=== PATIENT | male | born 1970 | race Hispanic/Latino ===

== ENCOUNTER → 2017-07-10 | Outpatient (CLI) | payer OTHER ==
[~2017-07-10] MED LIST: ARANESP60 MCG/1 M SC; CEFEPIME 11 GM/50 ML IV; DILAUDID 22 MG/1 ML IM/IV; HUMULIN N100 UNITS/ SC; HYDRALAZINE HCL25 MG PO; INSULIN NPH SC; LOVENOX60 MG/0.6 SC; METOPROLOL SUCC50 MG PO; NORCO 10-325 T1 EACH PO; NOVOLOG MI100 UNITS/ SC; PANTOPRAZOLE SO40 MG PO; PROTEIN PO; RENAGEL800 MG PO; SIMETHICONE80 MG PO; VANCOMYCIN HCL1 GM IV; ZOFRAN ODT4 MG IVP; [UNRECOGNIZED DRUG - OTHER] IVP; [UNRECOGNIZED DRUG - OTHER] PO
== END ==
LOC: NPA 11:30
PROVIDERS: ATTEND Internal Medicine
DX: Z02.89 Encounter for other administrative examinations (principal)
CPT/HCPCS: 87493

== ENCOUNTER → 2017-08-05 | Outpatient (CLI) | payer OTHER ==
[2017-08-05 14:17] LABS: ANION GAP 16.1 mmol/L (8-16); BLOOD UREA NITROGEN 43 mg/dL (7-26); BUN/CREATININE RATIO 46 (6-25); CARBON DIOXIDE 23 mmol/L (22-29); CHLORIDE 104 mmol/L (98-107); CREATININE, SERUM 0.93 mg/dL (0.72-1.25); EST GLOMERULAR FILTRATION RATE > 60 ML/MIN (60-); POTASSIUM 4.1 mmol/L (3.5-5.1); SODIUM 139 mmol/L (136-145)
[2017-08-05 14:18] LABS: CALCIUM 8.8 mg/dL (8.4-10.2); GLUCOSE 89 mg/dL (74-118)
[2017-08-05 14:23] LABS: BASOPHILS % 0.5 % (0.0-1.0); EOSINOPHILS # (AUTO) 0.4 (0.0-0.4); EOSINOPHILS % 5.6 % (0.0-6.0); HEMATOCRIT 29.2 % (38.2-49.6); HEMOGLOBIN 8.9 g/dL (14.0-18.0); LYMPHOCYTES # (AUTO) 1.4 (1.0-3.2); MEAN CORPUSCULAR HEMOGLOBIN 30.9 pg (28-32); MEAN CORPUSCULAR HGB CONC 30.5 g/dL (31-35); MEAN CORPUSCULAR VOLUME 101.4 fL (81-99); MONOCYTES # (AUTO) 0.3 (0.2-0.8); MONOCYTES % 5.4 % (4.4-11.3); NEUTROPHILS # (AUTO) 4.1 (2.1-6.9); NEUTROPHILS % 64.9 % (38.7-80.0); PLATELET COUNT 269 x10e3/uL (140-360); RED BLOOD COUNT 2.88 x10e6/uL (4.3-5.7); RED CELL DISTRIBUTION WIDTH 19.2 % (11.7-14.4)
== END ==
LOC: NPA 11:30
PROVIDERS: ATTEND Internal Medicine
DX: Z02.89 Encounter for other administrative examinations (principal)
CPT/HCPCS: 36415; 80048; 85025

== ENCOUNTER → 2018-07-09 | Outpatient (CLI) | payer MEDICARE, OTHER ==
--- NOTE | 2018-07-09 14:19 | Diagnostic Imaging Report ---
EXAMINATION: PA and lateral views of the chest. COMPARISON: None CLINICAL HISTORY: Cough, congestion DISCUSSION: Left internal jugular tunneled hemodialysis catheter tip projects over the superior cavoatrial junction. Lungs are well-inflated and without focal airspace consolidation, pleural effusion, or pneumothorax. Atherosclerotic calcification of the thoracic aorta. Otherwise normal cardiomediastinal contour. No acute osseous abnormality. IMPRESSION: No acute cardiopulmonary abnormalities. Signed by: Dr. Junito Young M.D. on 07/09/2018 2:16 PM
== END ==
LOC: RAD 13:19
PROVIDERS: ATTEND Internal Medicine
DX: R05 Cough (principal); R09.89 Other specified symptoms and signs involving the circulatory and respiratory systems; J40 Bronchitis, not specified as acute or chronic; I50.32 Chronic diastolic (congestive) heart failure
CPT/HCPCS: 71046

== ENCOUNTER 2020-01-09 19:23 | Inpatient (IN) | payer MEDICARE, OTHER ==
[~2020-01-09] VITALS: Ht 180.3 cm; Wt 85.3 kg
[2020-01-09 19:57] LABS: BASOPHILS # (AUTO) 0.1 (0.0-0.1); BASOPHILS % 0.6 % (0.0-1.0); EOSINOPHILS # (AUTO) 0.2 (0.0-0.4); EOSINOPHILS % 2.5 % (0.0-6.0); HEMOGLOBIN 8.8 g/dL (14.0-18.0); LYMPHOCYTES # (AUTO) 1.3 (1.0-3.2); LYMPHOCYTES % 15.4 % (18.0-39.1); MEAN CORPUSCULAR HGB CONC 30.3 g/dL (31-35); MONOCYTES # (AUTO) 0.5 (0.2-0.8); NEUTROPHILS # (AUTO) 6.2 (2.1-6.9); NEUTROPHILS % 75.1 % (38.7-80.0); PLATELET COUNT 226 x10e3/uL (140-360); RED BLOOD COUNT 2.93 x10e6/uL (4.3-5.7); RED CELL DISTRIBUTION WIDTH 14.6 % (11.7-14.4)
[2020-01-09 20:04] LABS: INR 1.05; PROTHROMBIN TIME 14.4 seconds (11.9-14.5)
[2020-01-09 20:05] LABS: PARTIAL THROMBOPLASTIN TIME 37.6 seconds (23.8-35.5)
[2020-01-09 20:12] LABS: ALBUMIN 2.6 g/dL (3.5-5.0); ALBUMIN/GLOBULIN RATIO 0.4 (0.8-2.0); ANION GAP 24.2 mmol/L (8-16); CALCIUM 9.4 mg/dL (8.4-10.2); CREATININE, SERUM 17.9 mg/dL (0.72-1.25)
[2020-01-09 20:16] LABS: POTASSIUM 6.2 mmol/L (3.5-5.1)
[2020-01-09] MEDS ORDERED: SODIUM BICARBONATE 8.4% INJ 50 ML SYR IV STA (20:17)
[2020-01-09] MEDS ORDERED: DEXTROSE 50% SYRINGE 50 ML IV STA (20:17)
[2020-01-09 20:18] LABS: CREATINE KINASE MB 1.8 ng/mL (0-5.0)
[2020-01-09] MEDS ORDERED: INSULIN REGULAR, HUMAN 100 UNIT/1 ML 3ML VIAL IV ONE (20:30)
[2020-01-09] MEDS ORDERED: CALCIUM GLUCONATE 10% INJ 13.95 MEQ in SODIUM CHLORIDE 0.9% 100 ML 100 ML IV ONE (20:45)
[2020-01-09] MEDS ORDERED: CALCIUM GLUCONATE 10% INJ 0.465 MEQ/ML VIAL ONE (21:09)
--- NOTE | 2020-01-09 21:26 | Diagnostic Imaging Report ---
EXAMINATION: CHEST SINGLE (PORTABLE) INDICATION: MISSED 10 DAYS OF DIALYSIS COMPARISON: Chest radiograph 07-09-2018. FINDINGS: TUBES and LINES: Left IJ tunneled hematosis catheter with tip in the cavoatrial junction. LUNGS: Lungs are moderately inflated. Mild perihilar and interstitial opacities. Mild patchy bibasilar opacities. No lobar consolidation. PLEURA: No pleural effusion or pneumothorax. HEART AND MEDIASTINUM: The cardiomediastinal silhouette is unchanged. Cardiac loop recorder. Atherosclerotic calcifications of the aortic arch. BONES AND SOFT TISSUES: No acute osseous abnormality. Remote healed left lower lateral rib fracture. UPPER ABDOMEN: No free air under the diaphragm. IMPRESSION: Findings of mild pulmonary interstitial edema. Bibasilar opacities, likely atelectasis, although infectious process is possible in the appropriate clinical setting. Signed by: Dr. Jama Segovia MD on 01/09/2020 9:23 PM
[2020-01-09] MEDS ORDERED: HYDROCODONE/APAP 10MG-325MG TAB PO ONE (21:45)
--- NOTE | 2020-01-09 23:33 | Emergency Department Note ---
History of Present Illnes History of Present Illness Chief Complaint: General Medicine Complaints History of Present Illness This is a 49 year old male PRESENTS WITH C/O GENERALIZED WEAKNESS, HAS NOT HAD DIALYSIS IN 10 DAYS. WAS EXPOSED TO A PERSON WITH COVID AND TOLD AT DIALYSIS HE COULD NOT RETURN UNTIL HE GOT A NEGATIVE COVID TEST, PT HAD A TEST 1 WEEK AGO BUT RESULTS ARE STILL PENDING. . 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 Any updates have been documented here. Past Medical History Past Medical History: Hypertension, Diabetes, ESRD, Hemodyalisis, H yperlipedemia Past Surgical History: Cholecysctectomy Other Surgery: FOOT SURGERY Social History Smoking Cessation: Never Smoker Counseling Performed: No Alcohol Use: None Any Illegal Drug Use: No Physically hurt or threatened: No Family History Family history of heart diseas: No Other family history HTN,DM Other Any Pre-Existing Lines (PICC,: Yes (l chest) Review of Systems Review of Systems Constitutional: Reports no symptoms EENTM: Reports no symptoms Cardiovascular: Reports no symptoms Respiratory: Reports no symptoms Gastrointestinal: Reports no symptoms Genitourinary: Reports no symptoms Musculoskeletal: Reports no symptoms Integumentary: Reports no symptoms Neurological: Reports as per HPI Psychological: Reports no symptoms Endocrine: Reports no symptoms Hematological/Lymphatic: Reports no symptoms Physical Exam Related Data Allergies: Coded Allergies: morphine (Verified Allergy, Mild, 09/14/15) methylphenidate (Verified Allergy, Unknown, 02/06/15) Triage Vital Signs Vital Signs Date Time Temp Pulse Resp B/P (MAP) Pulse Ox O2 Delivery O2 Flow Rate FiO2 01/09/20 21:38 84 13 168/82 96 Vital signs reviewed: Yes Physical Exam CONSTITUTIONAL Constitutional: Present well-developed, Present well-nourished HENT HENT: Present normocephalic, Present atraumatic, Present oropharynx clear/moist, Present nose normal HENT L/R: Present left ext ear normal, Present right ext ear normal EYES Eyes: Reports PERRL, Reports conjunctivae normal NECK Neck: Present ROM normal PULMONARY Pulmonary: Present effort normal, Present breath sounds normal CARDIOVASCULAR Cardiovascular: Present regular rhythm, Present heart sounds normal, Present capillary refill normal, Present normal rate GASTROINTESTINAL Abdominal: Present soft, Present nontender, Present bowel sounds normal GENITOURINARY Genitourinary: Present exam deferred SKIN Skin: Present warm, Present dry, Present other (SACRAL WOUND, IS CHRONIC PER PT, NO SIGN OF INFECTION) MUSCULOSKELETAL Musculoskeletal: Present ROM normal NEUROLOGICAL Neurological: Present alert, Present oriented x 3, Present no gross motor or sensory deficits PSYCHOLOGICAL Psychological: Present mood/affect normal, Present judgement normal Results Laboratory Result Diagram: 01/09/20194601/09/201946 Laboratory Laboratory Tests Test 01/09/20 19:47 White Blood Count 8.27 x10e3/uL (4.8-10.8) Red Blood Count 2.93 x10e6/uL (4.3-5.7) Hemoglobin 8.8 g/dL (14.0-18.0) Hematocrit 29.0 % (38.2-49.6) Mean Corpuscular Volume 99.0 fL (81-99) Mean Corpuscular Hemoglobin 30.0 pg (28-32) Mean Corpuscular Hemoglobin Concent 30.3 g/dL (31-35) Red Cell Distribution Width 14.6 % (11.7-14.4) Platelet Count 226 x10e3/uL (140-360) Neutrophils (%) (Auto) 75.1 % (38.7-80.0) Lymphocytes (%) (Auto) 15.4 % (18.0-39.1) Monocytes (%) (Auto) 6.0 % (4.4-11.3) Eosinophils (%) (Auto) 2.5 % (0.0-6.0) Basophils (%) (Auto) 0.6 % (0.0-1.0) Neutrophils # (Auto) 6.2 (2.1-6.9) Lymphocytes # (Auto) 1.3 (1.0-3.2) Monocytes # (Auto) 0.5 (0.2-0.8) Eosinophils # (Auto) 0.2 (0.0-0.4) Basophils # (Auto) 0.1 (0.0-0.1) Absolute Immature Granulocyte (auto 0.03 x10e3/uL (0-0.1) Prothrombin Time 14.4 seconds (11.9-14.5) Prothromb Time International Ratio 1.05 Activated Partial Thromboplast Time 37.6 seconds (23.8-35.5) Sodium Level 140 mmol/L (136-145) Potassium Level 6.2 mmol/L (3.5-5.1) Chloride Level 104 mmol/L (98-107) Carbon Dioxide Level 18 mmol/L (22-29) Anion Gap 24.2 mmol/L (8-16) Blood Urea Nitrogen 120 mg/dL (7-26) Creatinine 17.90 mg/dL (0.72-1.25) Estimat Glomerular Filtration Rate 3 ML/MIN (60-) BUN/Creatinine Ratio 7 (6-25) Glucose Level 87 mg/dL (74-118) Calcium Level 9.4 mg/dL (8.4-10.2) Total Bilirubin 0.4 mg/dL (0.2-1.2) Aspartate Amino Transf (AST/SGOT) 12 IU/L (5-34) Alanine Aminotransferase (ALT/SGPT) 10 IU/L (0-55) Alkaline Phosphatase 144 IU/L (40-150) Creatine Kinase 22 IU/L (30-200) Creatine Kinase MB 1.80 ng/mL (0-5.0) Troponin I 0.032 ng/mL (0-0.300) B-Type Natriuretic Peptide 1421.1 pg/mL (0-100) Total Protein 8.4 g/dL (6.5-8.1) Albumin 2.6 g/dL (3.5-5.0) Globulin 5.8 g/dL (2.3-3.5) Albumin/Globulin Ratio 0.4 (0.8-2.0) Lab results reviewed: Yes Imaging Imaging results reviewed: Yes Impressions REPORT STATUS: Signed EXAMINATION: CHEST SINGLE (PORTABLE) INDICATION: MISSED 10 DAYS OF DIALYSIS COMPARISON: Chest radiograph 07-09-2018. FINDINGS: TUBES and LINES: Left IJ tunneled hematosis catheter with tip in the cavoatrial junction. LUNGS: Lungs are moderately inflated. Mild perihilar and interstitial opacities. Mild patchy bibasilar opacities. No lobar consolidation. PLEURA: No pleural effusion or pneumothorax. HEART AND MEDIASTINUM: The cardiomediastinal silhouette is unchanged. Cardiac loop recorder. Atherosclerotic calcifications of the aortic arch. BONES AND SOFT TISSUES: No acute osseous abnormality. Remote healed left lower lateral rib fracture. UPPER ABDOMEN: No free air under the diaphragm. IMPRESSION: Findings of mild pulmonary interstitial edema. Bibasilar opacities, likely atelectasis, although infectious process is possible in the appropriate clinical setting. Signed by: Dr. Jama Onofre MD on 01/09/2020 9:23 PM Dictated By: JAMA ONOFRE MD 22 Transcribed By: MODESTO on 01/09/202122 COPY TO: ARPAN RUBIN MD~ Procedures 12 Lead ECG Interpretation ECG Interpretation : ECG: ECG 1 Glassine Machine Tender: Interpreted by ED physician Date: Jan 09, 2020 Time: 20:12 Rhythm: sinus rhythm Rate: normal BPM: 84 QRS axis: left Conduction: right bundle branch block ST segments normal: Yes T wave inversion: V1, V2, V3 Other findings: no other findings Q waves: III Clinical Impression: abnormal ECG Critical Care Time Total Critical Care Time (min): 31 Critcal care necessary due to: renal failure, other (HYPERKALEMIA) Critcal care time spent by me: develop tx plan w patient/surrogate, discussion w consultants, evaluation patient response to tx, examination of patient, obtaining hx from patient/surrogate, order/review laboratory studies, re- evaluation of patient condition, review of old charts Assessment & Plan Medical Decision Making MDM PT WITH GENERALIZED WEAKNESS AFTER MISSING DIALYSIS FOR LAST 10 DAYS CBC, CMP, EKG, CXR, ORDERED TO EVAL FOR HYPERKALEMIA, PULMONARY EDEMA, ARRHYTHMIA PT FOUND OT HAVE POTASSIUM OF 6.2 FOLLOWING ORDERED REGULAR INSULIN 10 UNITS IV CALCIUM GLUCONATE 1 AMP IV BICARB 1 AMP IV D50 1 AMP IV I SPOKE WITH DR ZABALA, STATES WILL HAVE PT RECEIVE DIALYSIS AT 6 AM PT'S CXR SHOWED MILD PULMONARY EDEMA AND SIGNS OF POSSIBLE COVID 19 VIRAL PNEUMONIA, COVID 19 TEST ORDERED [address] villarreal. pt awaiting dialysis and covid 19 result Assessment & Plan Final Impression: (1) ESRD needing dialysis (2) Hyperkalemia Last Vital Signs Date Time Temp Pulse Resp B/P (MAP) Pulse Ox O2 Delivery O2 Flow Rate FiO2 01/09/20 21:38 84 13 168/82 96 Home Meds Reported Medications Insulin Human Nph (HUMULIN N) 100 Units/Ml Ml, 14 UNITS SC DAILY 02/06/15 Insulin Human Nph (HUMULIN N) 100 Units/Ml Ml, 10 UNITS SC DAILY 02/06/15 Sevelamer Hcl (RENAGEL) 800 Mg Tablet, 2400 MG PO, TAB 02/06/15 Pantoprazole Sodium* (PROTONIX) 40 Mg Tablet.dr, 40 MG PO DAILY, TAB 02/06/15 Metoprolol Succinate (METOPROLOL SUCCINATE) 50 Mg Tab.er.24h, 50 MG PO DAILY, MG 02/06/15 Hydralazine Hcl (HYDRALAZINE HCL) 25 Mg Tab, 25 MG PO Q8HR, TAB 02/06/15 Hydrocodone Bit/Acetaminophen (NORCO 10-325 TABLET) 1 Each Tablet, 10 MG PO Q4HR PRN for PAIN 02/06/15 Medications in the ED Insulin Human Regular 10 unit ONCE ONCE IV Last administered on 01/09/20at 21:08; Admin Dose 10 UNIT; Start 01/09/20 at 20:30; Stop 01/09/20 at 20:35; Status DC Sodium Bicarbonate 50 ml NOW STAT IV Last administered on 01/09/20at 21:08; Admin Dose 50 ML; Start 01/09/20 at 20:17; Stop 01/09/20 at 20:19; Status DC Calcium Gluconate 13.95 meq/Sodium Chloride 130 ml @ 43.333 mls/ hr ONCE ONCE IV Last administered on 01/09/20at 21:09; Admin Dose 43.333 MLS/HR; Start 12/21 at 20:45; Stop 01/09/20 at 23:44 Dextrose 50 ml NOW STAT IV Last administered on 01/09/20at 21:08; Admin Dose 50 ML; Start 01/09/20 at 20:17; Stop 01/09/20 at 20:19; Status DC Calcium Gluconate STK-MED ONCE .ROUTE ; Start 01/09/20 at 21:09; Stop 01/09/20 at 21:04; Status DC Acetaminophen/ Hydrocodone Bitart 1 ea ONCE ONCE PO Last administered on 01/09/20at 22:08; Admin Dose 1 EA; Start 01/09/20 at 21:45; Stop 01/09/20 at 21:46 ARPAN RUBIN MD Jan 09, 2020 23:32
[2020-01-10] MEDS ORDERED: HYDRALAZINE HCL 20 MG/ML VIAL IV STA (03:54)
[2020-01-10 05:14] LABS: ANION GAP 24.2 mmol/L (8-16); CALCIUM 9.7 mg/dL (8.4-10.2); CREATININE, SERUM 18.89 mg/dL (0.72-1.25)
[2020-01-10 05:18] LABS: POTASSIUM 6.2 mmol/L (3.5-5.1)
--- NOTE | 2020-01-10 06:46 | NUR ---
TO ROOM ON ROUNDS, PT C/O SLIGHT CHEST PAIN. NOW RESOLVED. VS ASSESSED AND RECORDED. MD INFORMED. EKG DONE PER ORDERS. LAB CALLED TO RUN CARDIAC ENZYMES ON BLOOD SENT TO LAB PER MD REQUEST.
--- NOTE | 2020-01-10 06:55 | NUR ---
RC'D CALL FROM DIALYSIS NURSE. NURSE INFORMED OF RM NUMBER FOR HD.
[2020-01-10] MEDS ORDERED: DEXTROSE 50% SYRINGE 50 ML IV ONE ×2 (07:30→07:34)
[2020-01-10] MEDS ORDERED: SODIUM CHLORIDE 0.9% 1000ML 2,000 ML ONE (08:08)
--- NOTE | 2020-01-10 08:57 | NUR ---
Dialysis nurse present, pt currently receiving dialysis.
[2020-01-10] MEDS ORDERED: HEPARIN SOD (PORCINE) 1000 UNIT/ML SDV ONE (09:49)
--- NOTE | 2020-01-10 11:10 | NUR ---
pt is receiving dialysis at this time
[2020-01-10 13:38] LABS: ANION GAP 22.2 mmol/L (8-16); CALCIUM 8.6 mg/dL (8.4-10.2); CREATININE, SERUM 17.74 mg/dL (0.72-1.25)
[2020-01-10 13:42] LABS: POTASSIUM 6.2 mmol/L (3.5-5.1)
[2020-01-10] MEDS ORDERED: SOD POLYSTYRENE SULFONATE SUSP 15 GM/60 ML BTL PO ONE (14:15)
--- NOTE | 2020-01-10 14:19 | Diagnostic Imaging Report ---
EXAMINATION: CHEST SINGLE (PORTABLE) INDICATION: ^cough ^[id number] ^[id number] COMPARISON: 01/09/2020 FINDINGS: AP view TUBES and LINES: Left IJ tunneled hemodialysis catheter. Implanted loop recorder. LUNGS: Prominent pulmonary vasculature. No focal lung consolidation. PLEURA: No pleural effusion or pneumothorax. HEART AND MEDIASTINUM: The cardiomediastinal silhouette is unremarkable. BONES AND SOFT TISSUES: No acute osseous lesion. Soft tissues are unremarkable. UPPER ABDOMEN: No free air under the diaphragm. IMPRESSION: Central pulmonary venous congestion. No lung consolidation to suggest pneumonia. Signed by: Wesley Morrell MD on 01/10/2020 2:16 PM
--- NOTE | 2020-01-10 15:07 | NUR ---
REC'D REPORT IN WALKING ROUNDS WITH TRA FLORES FOR CONTINUITY OF CARE.
[2020-01-10 15:17] LABS: CALCIUM 8.9 mg/dL (8.4-10.2); CREATININE, SERUM 8.88 mg/dL (0.72-1.25)
--- NOTE | 2020-01-10 15:57 | NUR ---
[facility] CALLED FOR TX BACK HOME; ETA APPROX. 45 MIN.
--- NOTE | 2020-01-10 16:20 | NUR ---
TRIED TO CALL THE FAMILY; BUT NO ANSWER
--- NOTE | 2020-01-10 16:54 | NUR ---
; NUMBER ON CHART. LEFT MESSAGE, NO ANSWER
--- NOTE | 2020-01-10 17:03 | NUR ---
ANOTHER PHONE CALL TO [phone]
--- NOTE | 2020-01-10 17:06 | NUR ---
[facility] HERE TO TAKE PT BACK HOME, BUT NO ANSWER AT THE NUMBER [phone]
--- NOTE | 2020-01-10 17:26 | NUR ---
tried again to contact family; no answer
[2020-01-10] MEDS ORDERED: ONDANSETRON HCL INJ 2MG/ML 2ML 2 MG/ML VIAL IV PRN (18:00)
[2020-01-10] MEDS ORDERED: DEXTROSE 50% SYRINGE 50 ML IV PRN (18:00)
[2020-01-10] MEDS ORDERED: SODIUM CHLORIDE FLUSH 10 ML SYR INJ PRN (18:00)
--- NOTE | 2020-01-10 19:02 | NUR ---
to be admitted to 215
--- NOTE | 2020-01-10 19:16 | NUR ---
report called to pricilla victor
[2020-01-10 19:34] VITALS: BP 148/103
[2020-01-10 19:37] VITALS: BP 148/103
[2020-01-10] MEDS ORDERED: CLOPIDOGREL75 MG PO (19:54)
[2020-01-10] MEDS ORDERED: OMEPRAZOLE40 MG PO (19:54)
[2020-01-10] MEDS ORDERED: CALCIUM ACETAT667 M1 PO (19:54)
[2020-01-10] MEDS: INSULIN REGULAR, HUMAN 100 UNIT/1 ML 3ML VIAL SQ SCH (20:41)
[2020-01-10 21:24] VITALS: BP 148/103
[2020-01-11] VITALS (7 sets, daily range): BP systolic 123–182; BP diastolic 70–91
[2020-01-11 05:08] LABS: BASOPHILS % 0.3 % (0.0-1.0); EOSINOPHILS # (AUTO) 0.1 (0.0-0.4); EOSINOPHILS % 1.4 % (0.0-6.0); HEMATOCRIT 29.2 % (38.2-49.6); HEMOGLOBIN 8.9 g/dL (14.0-18.0); LYMPHOCYTES # (AUTO) 0.9 (1.0-3.2); LYMPHOCYTES % 12.6 % (18.0-39.1); MEAN CORPUSCULAR HEMOGLOBIN 30.1 pg (28-32); MEAN CORPUSCULAR HGB CONC 30.5 g/dL (31-35); MEAN CORPUSCULAR VOLUME 98.6 fL (81-99); MONOCYTES # (AUTO) 0.4 (0.2-0.8); MONOCYTES % 5.7 % (4.4-11.3); NEUTROPHILS # (AUTO) 5.9 (2.1-6.9); NEUTROPHILS % 79.7 % (38.7-80.0); PLATELET COUNT 225 x10e3/uL (140-360); RED BLOOD COUNT 2.96 x10e6/uL (4.3-5.7); RED CELL DISTRIBUTION WIDTH 14.5 % (11.7-14.4)
[2020-01-11 05:34] LABS: CHOL/HDL RATIO 2.6 (3.9-4.7)
[2020-01-11 05:41] LABS: ALBUMIN 2.5 g/dL (3.5-5.0); ALBUMIN/GLOBULIN RATIO 0.4 (0.8-2.0); ANION GAP 17.5 mmol/L (8-16); CALCIUM 9.1 mg/dL (8.4-10.2); CREATININE, SERUM 10.44 mg/dL (0.72-1.25); MAGNESIUM 1.9 MG/DL (1.3-2.1); PHOSPHORUS 5.5 MG/DL (2.3-4.7); POTASSIUM 4.5 mmol/L (3.5-5.1)
[2020-01-11] MEDS: INSULIN REGULAR, HUMAN 100 UNIT/1 ML 3ML VIAL SQ SCH ×4 (07:30→21:00)
--- NOTE | 2020-01-11 08:02 | NUR ---
CONSULT FOR SOCIAL SERVICE PUT IN BECAUSE FAMILY DID NOT ANSWER PHONE, PHONE NUMBERS FOR FAMILY ARE MAXI AGUIRRE [phone] SEAN AGUIRRE [phone].
[2020-01-11] MEDS ORDERED: HYDRALAZINE HCL25 MG PO (08:17)
[2020-01-11] MEDS ORDERED: SODIUM CHLORIDE 0.9% 1000ML 1,000 ML ONE (08:19)
--- NOTE | 2020-01-11 08:31 | NUR ---
PT HOME DIALYSIS [facility]IT IS [facility] [phone] CALLED AND SPOKE WITH NURSE KARI WHOM STATES HE IS A , AND THURSDAY AT 1030AM. SHE STATES HE IS NON-COMPLAINT AND TOLD THEM HE THINKS HE WAS EXPOSED SO HE CHOSE NOT TO GO TREATMENT, I ASKED IF THE PT WOULD BETTER BE SERVED BY TRANSFERRED TO A AMHERST LOCATION TO BE CLOSER TO SISTERS HOME,SHE STATES THE PT HAS NEVER ASKED TO BE MOVED. IF HE CHOOSES TO DO THAT ALL HE HAS TO DO IS CALL [facility] AT [phone]. DOCTOR HAS ASKED FOR A APS CALL TO CHECK HOME SITUATION, WILL REPORT ALL THAT HAS BEEN REPORTED. WILL FAX NEGATIVE RESULTS FROM COVID TEST TO DIALYSIS UNIT AT [phone]
[2020-01-11] MEDS ORDERED: ACETAMINOPHEN 325 MG TAB PO PRN (08:45)
[2020-01-11] MEDS: METOPROLOL SUCCINATE 50 MG TAB XL PO SCH (09:00)
[2020-01-11] MEDS: MUPIROCIN 2% OINT 22 GM TUBE TOP SCH ×2 (09:00→17:00)
[2020-01-11] MEDS: PANTOPRAZOLE SOD 40 MG TABEC PO SCH ×2 (09:10→17:12)
[2020-01-11] MEDS: CLOPIDOGREL BISULFATE 75 MG TAB PO SCH (09:10)
--- NOTE | 2020-01-11 09:10 | History and Physical ---
CHIEF COMPLAINT: Missed dialysis sessions. HISTORY OF PRESENT ILLNESS: This is a 49-year-old man, who presented to [facility] Emergency Room with a diagnosis of severe hyperkalemia secondary to missed hemodialysis sessions. The patient stated that his last hemodialysis session was on December 31, 2019. When the patient initially presented to [facility] Emergency Room, his potassium was 6.2. His B- type natriuretic peptide level was 1421. Chest film on admission revealed pulmonary interstitial edema with bibasilar opacities likely atelectasis. The patient did undergo hemodialysis during this hospitalization. The patient's potassium today is 4.5. The patient's B-type natriuretic peptide level today is 1080. The patient voices no complaints. The patient, however, has scrotal wounds that are draining purulent material. The patient's white blood cell count today is 7300 with 79% segmented neutrophils. He is currently being hemodialyzed at this time. Apparently, the patient wants to left the emergency room yesterday after hemodialysis, but a ride home could not be procured. His care at home is questionable. The patient, however, states he does have a provider that visits him twice a day. REVIEW OF SYSTEMS: GENERAL: Weight has been stable. No fever or chills, but he has been weaker lately. HEENT: No headaches. No visual changes. CARDIOVASCULAR/RESPIRATORY: No chest pain. He was slightly short of breath when he was admitted, but since resolved. Denies any coughing. GI: He states in the past 4 days, he has had diarrhea. Denies any nausea or vomiting. : He does not urinate. He has end-stage renal disease. NEUROMUSCULAR: He has numbness in his feet. He is predominantly bedbound. ALLERGIES: 1. METHYLPHENIDATE. 2. MORPHINE. HOME MEDICATIONS: 1. Calcium acetate 667 mg 3 capsules 3 times a day. 2. Clopidogrel 75 mg daily. 3. Metoprolol succinate 50 mg once a day. 4. Omeprazole 40 mg daily. 5. Sevelamer 2400 mg t.i.d. with meals. 6. Hydralazine 25 mg tid. PAST MEDICAL HISTORY: 1. Recurrent skin abscesses. 2. End-stage renal disease (he has been on hemodialysis since 2009). 3. 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 4. Hypertensive heart disease. 5. Chronic diastolic congestive heart failure. 6. Anemia secondary to chronic disease/chronic kidney disease. 7. Recurrent bouts of hidradenitis suppurativa. PAST SURGICAL HISTORY: 1. Right foot surgery. 2. Left upper extremity AV fistula placement. 3. Laparoscopic cholecystectomy. FAMILY HISTORY: Mother had type 2 diabetes mellitus, but she has since passed. His sister also has type 2 diabetes mellitus. SOCIAL HISTORY: This man is single. He apparently lives with his nephew and his sister. He is unemployed and receiving disability benefits. The patient has no history of tobacco or alcohol use. PHYSICAL EXAMINATION: GENERAL: He is awake. He is alert. He looks chronically ill. He is pleasant and cooperative on exam. He does not appear to be in any obvious respiratory distress. VITAL SIGNS: Height 5 feet 11 inches, weight 188 pounds, BMI 26. Blood pressure 168/78, pulse 88, respiratory rate is 18, oxygen saturation 93% on room air, and temperature 98.1. INTEGUMENT: Skin is warm and dry. Slight pallor. No jaundice or diaphoresis. The patient has scrotal wound draining purulent material. HEENT: Anterior sclerae with moist mucous membranes. The patient has enucleated right eye. He is legally blind. NECK: Supple. No evidence of jugular venous distention. CARDIOVASCULAR: Distant heart sounds. Regular rate and rhythm with S4 gallop. LUNGS: No rales. No rhonchi, but he has crackles at the bases. ABDOMEN: Soft. Normal bowel sounds. EXTREMITIES: No edema. He has muscle wasting. NEUROLOGIC: He is bedbound. No gross deficits, but he is globally weak. DIAGNOSES: 1. End-stage renal disease. 2. Hyperkalemia secondary to missed hemodialysis sessions, resolved. 3. Scrotal wounds (infected). 4. Zbmgh-ye-hwegvua diastolic congestive heart failure, resolving. 5. Hypertensive heart disease. 6. Type 2 diabetes mellitus with severe diabetic retinopathy and peripheral neuropathy. PLAN: 1. We will likely discharge the patient home today, but if his home environment is unsafe, then he will be referred to a [facility] facility. 2. We will order mupirocin 2% ointment to be applied to the patient's scrotum twice a day for 10 days. 3. Resume home medications. 4. Proceed with hemodialysis today. 5. Blood glucose monitoring control. 6. Blood pressure monitoring control. Spent an hour in the care of this patient. MD SIMONE Lima/REBECCA /[id number] LUIS
--- NOTE | 2020-01-11 09:43 | NUR ---
CALLED SISTER SEAN [phone], SHE STATES PT LIVES WITH THEIR SISTER DAMIAN [phone] (CALLED AND LEFT MESSAGE), SHE CONFIRMED THERE IS A NURSE THAT COMES 2 TIMES A DAY BUT CANT REMEMBER NAME OR COMPANY [phone] (CALLED AND LEFT MESSAGE TO RETURN CALL), FILED APS REPORT PER DOCTOR REQUEST report is [id number], SISTER SEAN IS HELPFUL AND PROVIDED INFORMATION, WAS CONCERNED ABOUT HER BROTHER AND ASKED IF ANYTHING HAPPENS TO PLEASE CALL HER.
[2020-01-11] MEDS ORDERED: HEPARIN SOD (PORCINE) 1000 UNIT/ML SDV IV PRN (09:45)
[2020-01-11] MEDS ORDERED: SODIUM CHLORIDE 0.9% 1000ML 2,000 ML IV PRN (09:45)
--- NOTE | 2020-01-11 11:55 | NUR ---
NURSE MUMTAZ SEES THIS PATIENT 3 TIMES A WEEK ON , THU AND FRIDAYS FOR WOUND CARE WITH [facility] IF NEED TO FAX ORDERS THEY WILL GO TO [phone], OFFICE IS [phone]. HIS FAMILY IS BEING PAID FOR BEING THE PROVIDER FOR 40 HOURS A WEEK, THEY HAVE BEEN TRYING TO GET THEM TO SWITCH TO A PROVIDER BUT DIFFERENT FAMILY MEMBERS WANT TO DO IT. SHE STATES THE SON WHOM IS GETTING PAID TO BE THER PROVIDER AND HIS LEGAL ADDRESS IS ON [facility] BUT HE IS STAYING AT HIS SIST[facility] AT [address], [place] [address]. EDUCATED THAT HE CAN BE MOVED TO A LOCAL [facility] AND THE PROCESS TO ACHIEVE. SHE STATES THEY WILL SEE HIM ON THURSDAY.
[2020-01-11] MEDS: CALCIUM ACETATE 667 MG GELCAP PO SCH ×2 (12:11→17:12)
[2020-01-11] MEDS: SEVELAMER CARBONATE 800 MG TAB PO SCH ×2 (12:11→17:12)
--- NOTE | 2020-01-11 12:26 | NUR ---
SPOKE WITH [facility] HE IS THEIR PT. THEY WERE ABLE TO PROVIDE ADDRESS WHERE PT IS GETTING CARE [address] [place] [address], HOME NUMBER IS [phone] ([facility]) HAS A SON ALSO THAT IS PAID TO BE A PROVIDER FOR 40 HOURS A WEEK MAXI ANTHONY [phone] OR [phone], SHE ALSO STATES THEY NEED A RESUME HOME HEALTH ORDER AND A COPY OF THE COVID RESULTS FAXED TO THEM. CALLED AND INFORMED NURSE OF ALL INTERACTION AND NEED FOR A ORDER TO RESUME.
--- NOTE | 2020-01-11 12:58 | NUR ---
WOUND CARE CONSULT FOR 49 YO MALE HX OF ESRD,WEAKNESS HYPERKALEMIA RENITA 9 ON STRICT PUP STATUS AND INTERVENTIONS AND ALTERNATING PRESSURE MATTRESS LABS: WBC-7.38 HGB_8.9 GLUCOSE-85 SKIN ASSESSMENT COMPLETE PATIENT PRESENTS WITH NEWLY HEALED AREAS TO BUTTOCKS AND BILATERAL HEELS SCROTUM HAS OPEN AREAS RELATED TO MOISTURE IRRITATION AND URINE BURN REPORTED BY PATIENT. UPPER OPEN AREA TO SCROTUM 1CM X 2CM X 0.1CM LOWER OPEN AREA TO SCROTUM 1CM X 4CM X 0.1CM RECOMMENDATIONS: NURSING TO CONTINUE TO MAINTAIN STRICT PUP STATUS AND INTERVENTIONS AND ALTERNATING PRESSURE MATTRESS NURSING TO CONTINUE TO ASSIST PATIENT OUT OF BED FOR MEALS AND MUCH TOLERATED NURSING TO CONTINUE TO ASSIST PATIENT NEEDED WITH MEALS AND NUTRITIONAL SUPPLEMENTS TO ENSURE PROPER REQUIREMENTS FOR HEALING NURSING TO CONTINUE TO OFFLOAD FEET AND HEELS NEEDED WITH PILLOW SUSPENSION WHEN IN BED NURSING TO CLEAN SCROTUM WITH GENTLE SOAP DAILY AND APPLY ZINC/BALSM MIA BARRIER PASTE NURSING TO CLEAN LEFT GREAT TOE WITH NORMAL SALINE DAILY AND APPLY VENELEX OINTMENT AND LEAVE OPEN TO AIR Addendum: 01/11/20 at 1308 by Julius Villegas RN Amended: Links added.
[2020-01-11] MEDS: ZINC OXIDE / BALSAM PERU 30 GM TUBE TOP SCH (13:15)
--- NOTE | 2020-01-11 13:17 | NUR ---
[facility] CALLED AND STATES ALREADY A CASE ON PT. SHE WILL FOLLOW UP, SHE STATES PT IS INDEPENDENT AND ABLE TO GT AROUND OWN HOME. SHE WILL FOLLOW UP WITH THE FAMILY.
[2020-01-11] MEDS: HYDRALAZINE HCL 25 MG TAB PO SCH ×2 (14:00→22:00)
--- NOTE | 2020-01-11 15:06 | NUR ---
Patient's sister has been notified that he has been discharged and will need someone to arrange to come pick him up. Patient confirmed Geraldo (sister) is who he will be living with.
--- NOTE | 2020-01-11 15:15 | NUR ---
Patient is alert and oriented x3, legally blind both eyes. Discharge instructions and f/u were discussed. He verbalized understanding.
--- NOTE | 2020-01-11 16:25 | NUR ---
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 Ht: 71 in Wt:188 lb BMI: 26.2 kg/m2 IBW:[address] Assessment: (01/10) Chart reviewed. Labs and meds reviewed. Pt is a 49 year old male admitted with ESRD, hyperkalemia, and weakness. Pt was sleeping at time of visit. It is recorded that pt consumed 75% of breakfast this morning. Weight has been stable per H/P MD note. RD is available for diet education as needed. Will continue to monitor. Current Diet: renal/diabetic diet Malnutrition Evaluation (01/11/20) The patient does not meet criteria for a specified degree of malnutrition at this time. Will re-evaluate at follow-up as appropriate. Diet Education Needs Assessment: RD is available for diet education as needed Nutrition Care Level: low Signed: Huyen Zamorano, SAMUEL, LD
[2020-01-11] MEDS ORDERED: VANCOMYCIN 1GM/NS 250 ML 250 ML IV ONE (16:45)
--- NOTE | 2020-01-11 19:09 | NUR ---
Dr. Gtz is here making rounds and said from his standpoint there is no surgical intervention needed but patient will need antibiotics. Notified Dr. Pandya.
--- NOTE | 2020-01-11 19:30 | NUR ---
Completed bedside nursing report with morning nurse. Pt alert and oriented to name, lying in bed HOB 30 degrees. Denies pain at this time. Call light within reach.
[2020-01-12] VITALS (7 sets, daily range): BP systolic 122–154; BP diastolic 75–99
[2020-01-12] MEDS: HYDROCODONE/APAP 7.5MG-325MG 1 EA TAB PO PRN ×2 (00:10→09:21)
[2020-01-12] MEDS: HYDRALAZINE HCL 25 MG TAB PO SCH ×3 (05:44→22:00)
[2020-01-12 06:28] LABS: BASOPHILS # (AUTO) 0.1 (0.0-0.1); BASOPHILS % 0.7 % (0.0-1.0); EOSINOPHILS # (AUTO) 0.1 (0.0-0.4); EOSINOPHILS % 1.8 % (0.0-6.0); HEMATOCRIT 27.8 % (38.2-49.6); HEMOGLOBIN 8.6 g/dL (14.0-18.0); LYMPHOCYTES # (AUTO) 1.4 (1.0-3.2); LYMPHOCYTES % 18.4 % (18.0-39.1); MEAN CORPUSCULAR HEMOGLOBIN 32.8 pg (28-32); MEAN CORPUSCULAR HGB CONC 30.9 g/dL (31-35); MEAN CORPUSCULAR VOLUME 106.1 fL (81-99); MONOCYTES # (AUTO) 0.5 (0.2-0.8); MONOCYTES % 7.2 % (4.4-11.3); NEUTROPHILS # (AUTO) 5.3 (2.1-6.9); NEUTROPHILS % 71.6 % (38.7-80.0); PLATELET COUNT 187 x10e3/uL (140-360); RED BLOOD COUNT 2.62 x10e6/uL (4.3-5.7); RED CELL DISTRIBUTION WIDTH 14.9 % (11.7-14.4)
[2020-01-12 06:43] LABS: ALBUMIN 2.5 g/dL (3.5-5.0); ALBUMIN/GLOBULIN RATIO 0.4 (0.8-2.0); ANION GAP 15.4 mmol/L (8-16); CALCIUM 9.4 mg/dL (8.4-10.2); CREATININE, SERUM 6.64 mg/dL (0.72-1.25); POTASSIUM 4.4 mmol/L (3.5-5.1)
[2020-01-12] MEDS: INSULIN REGULAR, HUMAN 100 UNIT/1 ML 3ML VIAL SQ SCH ×4 (07:30→21:00)
--- NOTE | 2020-01-12 07:51 | NUR ---
CURRENTLY CANNOT ADDRESS THE SNF ORDER THERE IS NO IV ABX OR A PHYSICAL THERAPY EVAL, DOES NOT MEET CRITERIA, SPOKE WITH NURSE WHOM WILL SPEAK WITH DOCTOR TO GET PT EVAL AND CHECK ABOUT WOUNDS AND IF IV ABX ARE NEEDED.
[2020-01-12 08:00] LABS: ANISOCYTOSIS SLIGHT; HYPOCHROMASIA SLIGHT; PLATELET ESTIMATE ADEQUATE; PLATELET MORPHOLOGY COMMENT NORMAL; RBC MORPHOLOGY COMMENT NORMAL
[2020-01-12] MEDS: CALCIUM ACETATE 667 MG GELCAP PO SCH ×3 (08:47→17:20)
[2020-01-12] MEDS: SEVELAMER CARBONATE 800 MG TAB PO SCH ×3 (08:47→17:20)
[2020-01-12] MEDS: PANTOPRAZOLE SOD 40 MG TABEC PO SCH ×3 (08:47→17:20)
[2020-01-12] MEDS: CLOPIDOGREL BISULFATE 75 MG TAB PO SCH (08:47)
[2020-01-12] MEDS ORDERED: BALSAM PERU/CASTOR OIL 60 GM OINT...G. TP SCH (09:00)
[2020-01-12] MEDS ORDERED: ZINC OXIDE / BALSAM PERU 30 GM TUBE TOP SCH (09:00)
[2020-01-12] MEDS: ZINC OXIDE / BALSAM PERU 30 GM TUBE TOP SCH (09:00)
[2020-01-12] MEDS ORDERED: VANCOMYCIN 1GM/NS 250 ML 250 ML IV ONE (09:15)
--- NOTE | 2020-01-12 10:11 | Discharge Summary ---
ADMIT DIAGNOSES: 1. Acute on chronic diastolic heart failure. 2. End-stage renal disease. 3. Hyperkalemia. 4. Hypertensive heart disease. 5. 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 6. Anemia secondary to chronic disease. DISCHARGE DIAGNOSES: 1. Acute on chronic diastolic congestive heart failure, resolved. 2. End-stage renal disease. 3. Hyperkalemia, resolved. 4. Left block/scrotal folliculitis with surrounding cellulitis. 5. 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 6. Hypertensive heart disease. 7. Anemia secondary to chronic disease. 8. Legal blindness. 9. Physical debility. HOSPITAL COURSE: This is a 49-year-old man, who was initially admitted to [facility] with diagnosis of hyperkalemia and acute pulmonary edema secondary to missed hemodialysis sessions. The patient stated that his last hemodialysis was on December 31, 2019. The patient stated that he elected not to undergo hemodialysis for the fear of soheila COVID-19 infection. During this hospitalization, the patient was dialyzed on two consecutive days, which corrected his pulmonary edema and hyperkalemia. The patient's potassium on admission was 6.2 and on discharge was 4.4. The patient was seen by his steel pourer helper during this hospitalization namely Dr. Cordero_ During this hospitalization, the patient was found to have folliculitis of his scrotal area as well as his left buttock area that was draining purulent material. He was started on intravenous vancomycin. He was seen by general surgeon namely Dr. Gtz, who stated that the patient did not want incision and drainage of these small abscesses. The general surgeon recommended that the patient continue intravenous antibiotics for this condition. These draining abscesses were cultured and the results were still pending on discharge. The patient was started on intravenous vancomycin, which he received twice, first on January 11, 2020 and second on January 12, 2020. The decision was made to treat this patient for the next two weeks with intravenous vancomycin 1 g intravenous after hemodialysis Thursday, Thursday, and Thursday for the next two weeks. The patient was also seen by physical therapy during this hospitalization. A decision was made to transfer the patient to a [facility]iary facility where he could receive two weeks of intravenous antibiotic therapy as well as wound care to his scrotal and buttock abscesses. CONDITION ON DISCHARGE: The patient's condition on discharge was stable with an overall fair prognosis. DISCHARGE MEDICATIONS: 1. Mupirocin 2% ointment that will be applied to the patient's nostrils and to his scrotal and buttock wounds twice a day for next 10 days. 2. Vancomycin 1 g intravenous after hemodialysis for the next 2 weeks. 3. Sevelamer 2400 mg t.i.d. with meals. 4. Pantoprazole 40 mg daily. 5. Clopidogrel 75 mg daily. 6. Calcium acetate 667 mg t.i.d. meals. 7. Hydralazine 25 mg p.o. q.8 hours. 8. Acetaminophen 650 mg every 4 hours p.r.n. temperature 99.5 or higher. 9. Metoprolol succinate 50 mg daily. 10. Humulin R insulin sliding scale. FOLLOWUP INSTRUCTIONS: The patient will be transferred to a local penitentiary facility namely [facility] where he will receive intravenous antibiotics namely vancomycin as previous stated. At this facility, the patient will also be able to receive wound care to his scrotal and left buttock draining abscesses. MD SIMONE Lima/REBECCA /[id number] MTDD
--- NOTE | 2020-01-12 11:29 | NUR ---
WENT TO SPEAK WITH PT ABOUT THE SNF, HE STATES [facility] IS WHERE HE GOT THE [facility]SC[facility], HE STATES HE WOULD PREFER TO NOT GO, I ASKED WHICH SISTER ARE WE SUPPOSED TO BE ABLE TO SPEAKING WITH, HE STATES DAMIAN, I ASKED HIM IF HE WANTED TO CALL HER AND TALK WITH HER ABOUT THE SNF AND I CAN COME BACK IN ABOUT AN HOUR TO GET HIS FINAL ANSWER. DID CALL BUSINESS OFFICE AND HAD FACESHEET CHANGED. TOOK COPIES OF FACESHEET TO CHART.
--- NOTE | 2020-01-12 12:10 | NUR ---
WENT TO PT ROOM, HE WAS SITTING UP EATING LUNCH, HE STATES HE SPOKE WITH HIS SISTER AND SHE WILL BE HERE TO PICK HIM UP ABOUT 7PM TONIGHT. LET NURSE AND DOCTOR KNOW.
[2020-01-12] MEDS ORDERED: ONDANSETRON HCL 4 MG ORAL DISINTEGRATING TAB PO PRN (15:30)
[2020-01-12] MEDS ORDERED: VANCOMYCIN 1GM/NS 250 ML 250 ML IV SCH (16:00)
[2020-01-12] MEDS: METOPROLOL SUCCINATE 50 MG TAB XL PO SCH (17:20)
[2020-01-12] MEDS: MUPIROCIN 2% OINT 22 GM TUBE TOP SCH ×2 (17:32→17:33)
--- NOTE | 2020-01-12 19:20 | NUR ---
Nursing report completed with morning nurse. Pt alert and oriented to name, lying in bed HOB 30 degrees. Denies pain at this time. Call light within reach.
--- NOTE | 2020-01-12 23:00 | NUR ---
Pt discharged home via WC to private vehicle. Pt no acute distress. D/C'd IV 20g left FA, Pt tolerated well. Pt received discharge instructions with education on the importance of hemodialysis, Pt verbalized understanding, no further questions or concerns. Pt left with belongings.
--- NOTE | 2020-01-13 09:59 | NUR ---
Dictated DC summary addendum: [id number]
--- NOTE | 2020-01-13 10:43 | Discharge Summary ---
ADDENDUM: The plan on discharge was to transfer Mr. Ezequiel Amrao to a local snf facility, namely [facility]. However, the patient changed his mind and his adult sister came to the hospital and took the patient home. The risks of not transferring to a snf facility for further intravenous antibiotic therapy was discussed with the patient. However, the patient was adamant about being discharged home. DISCHARGE DIAGNOSES: 1. Acute on chronic diastolic congestive heart failure, resolved. 2. End-stage renal disease. 3. Life-threatening hyperkalemia, resolved. 4. Klebsiella pneumoniae infected buttock wound. 5. Type 2 diabetes mellitus with severe retinopathy and peripheral adenopathy. 6. Hypertensive heart disease. 7. Anemia secondary to chronic disease. 8. Legal blindness. 9. Physical debility. CONDITION ON DISCHARGE: Stable with an overall fair prognosis. DISCHARGE MEDICATIONS: 1. Mupirocin 2% ointment to be applied to both the patient's nostrils and his scrotal and buttock wounds twice a day for the next 10 days. 2. Ciprofloxacin 500 mg taken daily after hemodialysis Thursday, Thursday, Thursday for total of nine doses. 3. Sevelamer 2400 mg daily. 4. Pantoprazole 40 mg daily. 5. Clopidogrel 75 mg daily. 6. Calcium acetate 667 mg t.i.d. with meals. 7. Hydralazine 25 mg every 8 hours. 8. Acetaminophen 650 mg every 4 hours p.r.n. temperature 99.5, higher. 9. Metoprolol succinate 50 mg daily. FOLLOWUP INSTRUCTIONS: The patient instructed to follow up with Dr. Pandya within the next two weeks. Once again, the patient is not transferring to a local snf facility due to the fact the patient decided to be discharged home with his adult sister. MD SIMONE Lima/REBECCA /[id number]
== END 2020-01-12 23:00 | disposition home health service (06) | DRG 291 ==
LOC: ER 19:50 → ERHOLD 01-10 17:53 → MED/SURG2 01-10 19:46 → OBSVTOIN 01-11 20:11
PROVIDERS: ADMIT Internal Medicine; ATTEND Internal Medicine
PROC: 5A1D70Z Performance of Urinary Filtration, Intermittent, Less than 6 Hours Per Day (ICD-10-PCS; principal; 2020-01-10)
DX: I13.2 Hypertensive heart and chronic kidney disease with heart failure and with stage 5 chronic kidney disease, or end stage renal disease (principal); N18.6 End stage renal disease; I50.33 Acute on chronic diastolic (congestive) heart failure; E87.5 Hyperkalemia; E11.22 Type 2 diabetes mellitus with diabetic chronic kidney disease; Z99.2 Dependence on renal dialysis; Z79.4 Long term (current) use of insulin; D63.1 Anemia in chronic kidney disease; S31.809A Unspecified open wound of unspecified buttock, initial encounter; B96.1 Klebsiella pneumoniae [K. pneumoniae] as the cause of diseases classified elsewhere; R53.81 Other malaise; H54.8 Legal blindness, as defined in USA; S31.30XA Unspecified open wound of scrotum and testes, initial encounter; Z11.59 Encounter for screening for other viral diseases
CPT/HCPCS: 36415; 71045; 80048; 80053; 80061; 82550; 82553; 82948; 83036; 83735; 83880; 84100; 84484; 85025; 85610; 85730; 86705; 86706; 87071; 87186; 87205; 87340; 87493; 93005; 97139; 99284; G0378; J0360; J0610; J1644; J2405; J3370; J7030; J7799; U0002